=== PATIENT | female | born 1990 ===

== ENCOUNTER 2016-10-23 19:34 | Emergency (ER) | payer MEDICAID ==
[2016-10-23 19:34] VITALS: BMI 39.6
[2016-10-23 19:51] VITALS: BP 133/88; PULSE 86; RESP 18; TEMP 98.2; O2SAT 99
--- NOTE | 2016-10-23 20:28 | ED PDOC ---
HPI: General Adult Time Seen by Provider: 10/23/16 19:45 Chief Complaint (Nursing): Female Genitourinary Chief Complaint (Provider): cough, vaginal discharge History Per: Patient Additional Complaint(s): 26-year-old female with no past medical history presents to emergency department with cough ongoing for 2 weeks. Patient also states she has had white vaginal discharge with foul odor for 2 days. Patient is currently sexually active with one partner but does not use protection. She is not sure if she is at risk for STD. She states last week she shaved external genitalia with a razor and has redness and swelling to external skin. No fever or chills. No associated chest pain. Past Medical History Reviewed: Historical Data, Nursing Documentation, Vital Signs Vital Signs: Last Vital Signs Temp 98.2 F 10/23/16 19:47 Pulse 86 10/23/16 19:47 Resp 18 10/23/16 19:47 BP 133/88 10/23/16 19:47 Pulse Ox 99 10/23/16 21:10 - Medical History PMH: Anemia, Gastritis - Surgical History Surgical History: Tonsillectomy, (x3) Other surgeries: abdominoplasty - Family History Family History: States: No Known Family Hx - Living Arrangements Living Arrangements: With Family - Social History Current smoker - smoking cessation education provided: Yes Alcohol: None Drugs: Denies - Home Medications Home Medications: Ambulatory Orders Medication Instructions Recorded Ciprofloxacin [Cipro] 500 mg PO BID #28 tab 05/12/15 Oseltamivir [Tamiflu Cap] 75 mg PO BID 3 Days 05/12/15 metroNIDAZOLE [Flagyl] 500 mg PO Q8 #42 tab 05/12/15 oxyCODONE/Acetaminophen [Percocet 1 tab PO Q6 PRN #40 tab 05/12/15 5/325 mg Tab] metroNIDAZOLE [Flagyl] 500 mg PO BID #14 tab 04/15/16 Famotidine [Pepcid] 20 mg PO DAILY PRN #30 tab 06/10/16 Ondansetron ODT [Zofran ODT] 4 mg PO TID #21 odt 06/10/16 Albuterol HFA [Ventolin HFA 90 1 puff IH ASDIR #1 unit 10/23/16 mcg/actuation (8 g)] Benzonatate 200 mg PO TID PRN #20 capsule 10/23/16 Metronidazole [Metrogel] 60 gm VAG HS #1 packet 10/23/16 Sulfamethoxazole/Trimethoprim 1 tab PO BID #14 tab 10/23/16 [Bactrim DS 800 mg-160 mg] - Allergies Allergies/Adverse Reactions: Allergies Allergy/AdvReac Type Severity Reaction Status Date / Time No Known Allergies Allergy Verified 06/10/16 13:11 Review of Systems ROS Statement: Except As Marked, All Systems Reviewed And Found Negative Constitutional: Negative for: Fever, Chills Cardiovascular: Negative for: Chest Pain Respiratory: Positive for: Cough (x 2 weeks) Gastrointestinal: Negative for: Nausea, Vomiting, Abdominal Pain Genitourinary Female: Positive for: Vaginal Discharge, Rash (to external genitalia s/p shaving last week). Negative for: Dysuria, Frequency, Incontinence, Hematuria, Vaginal Bleeding, Pelvic Pain Physical Exam - Reviewed Nursing Documentation Reviewed: Yes Vital Signs Reviewed: Yes - Physical Exam Appears: Positive for: Well, Non-toxic, No Acute Distress Eye Exam: Positive for: Normal appearance Cardiovascular/Chest: Positive for: Regular Rate, Rhythm Respiratory: Positive for: Normal Breath Sounds Gastrointestinal/Abdominal: Positive for: Soft. Negative for: Tenderness, Distended, Guarding, Rebound Pelvic Exam: Positive for: Other (Diffuse folliculitis noted to external genitalia, no vesicular lesions, copious amount of white discharge noted from closed cervical os, no bleeding noted, nontender adnexa bilaterally, nontender uterus, no CMT) Back: Negative for: L CVA Tenderness, R CVA Tenderness Extremity: Positive for: Normal ROM Neurologic/Psych: Positive for: Alert, Oriented - Laboratory Results Urine POC: Negative Urine dip results: Positive for: Leukocyte Esterase (trace) - ECG O2 Sat by Pulse Oximetry: 99 Pulse Ox Interpretation: Normal - Other Rad CXR X-Ray: Interpreted by Me, Viewed By Me X-Ray Interpretation: no infiltrate Medical Decision Making Medical Decision Makin26 year old with cough and vaginal discharge Plan: CXR test Urine dip CHL/GC culture Urine culture Genital culture Patient was treated empirically for CHL and GC with 250 mg IM rocephin and 1000 mg PO zithromax. Diflucan 150 mg PO tablet also given. Rx bactrim DS for folliculitis given. Rx metrogel for vaginosis. Rx tessalon perles and ventolin inhaler given for cough/URI. Patient was referred to clinic for follow up. Disposition - Clinical Impression Clinical Impression: Cough, Vaginal discharge, Possible exposure to STD, Vaginosis - Patient ED Disposition Is Patient to be Admitted: No Counseled Patient/Family Regarding: Studies Performed, Diagnosis, Need For Followup, Rx Given - Disposition Referrals: [facility] [Outside] [facility] [[facility] Disposition: Routine/Home Disposition Time: 21:07 Condition: STABLE Additional Instructions: Take meds as directed. Refrain from intercourse until symptoms resolve. Inform your partner of treatment given today. Follow up with clinic. Prescriptions: Albuterol HFA [Ventolin HFA 90 mcg/actuation (8 g)] 1 puff IH ASDIR #1 unit Benzonatate 200 mg PO TID PRN #20 capsule PRN Reason: Cough Metronidazole [Metrogel] 60 gm VAG HS #1 packet Sulfamethoxazole/Trimethoprim [Bactrim DS 800 mg-160 mg] 1 tab PO BID #14 tab Instructions: Sexually Transmitted Diseases (ED), Condom Use (ED), Safe Sex (ED ), Folliculitis (ED), Acute Cough (ED), Vaginal Discharge (ED)
[2016-10-23] MEDS ORDERED: cefTRIAXone (Rocephin) 250 mg Inj IM STA (20:58)
[2016-10-23] MEDS ORDERED: Fluconazole 150 MG TAB PO STA (20:58)
[2016-10-23] MEDS ORDERED: cefTRIAXone (Rocephin) 250 mg Inj ONE (21:07)
[2016-10-23] MEDS ORDERED: Sterile Water 10 ML IV ONE (21:08)
--- NOTE | 2016-10-24 12:36 | RAD ---
HISTORY: cough COMPARISON: No prior. TECHNIQUE: Chest PA and lateral FINDINGS: LUNGS: No active pulmonary disease. PLEURA: No significant pleural effusion identified. No pneumothorax apparent. CARDIOVASCULAR: Normal. OSSEOUS STRUCTURES: No significant abnormalities. VISUALIZED UPPER ABDOMEN: Normal. OTHER FINDINGS: None. IMPRESSION: No active disease. Concordant results with the preliminary interpretation rendered by the emergency department physician procedure.
== END 2016-10-23 22:00 | disposition home or self-care (01) ==
LOC: H.ER 19:34
DX: N89.8 Other specified noninflammatory disorders of vagina (principal); R05 Cough